=== PATIENT | male | born 1935 | race Caucasian/White ===

== ENCOUNTER 2020-02-21 16:23 | Inpatient (IN) | payer OTHER ==
[~2020-02-21] VITALS: Ht 182.9 cm; Wt 80.4 kg
[2020-02-21 16:23] VITALS: BP 171/72
[2020-02-21 17:21] LABS: ABSOLUTE NEUTROPHILS 4.1 thou/uL (1.4-8.2); BASOPHILS 0.3 % (0.0-2.0); EOSINOPHILS 4.5 % (0.0-3.0); HEMATOCRIT 48.9 % (42.0-52.0); HEMOGLOBIN 16.3 gm/dL (14.0-18.0); LYMPHOCYTES 13.7 % (24.0-44.0); MCH 32.7 pg (26.0-34.0); MCHC 33.4 g/dL (28.0-37.0); MCV 98.1 fL (80.0-100.0); MONOCYTES 10.6 % (1.0-8.0); PLATELET COUNT 232 thou/uL (150-400); POLYS 70.9 % (36.0-66.0); RBC 4.99 mil/uL (4.50-6.00); WBC 5.8 thou/uL (4.0-11.0)
[2020-02-21 17:30] LABS: CALCIUM 9.3 mg/dL (8.5-10.1); CREATININE 1.3 mg/dL (0.7-1.3); POTASSIUM 4.2 mmol/L (3.5-5.1)
[2020-02-21] MEDS ORDERED: TYLENOL325 MG PO (17:32)
[2020-02-21 17:36] LABS: TOTAL BILIRUBIN 0.4 mg/dL (<0.1-1.0)
[2020-02-21] MEDS ORDERED: ALPRAZOLAM XR3 MG PO (17:37)
[2020-02-21] MEDS ORDERED: SERTRALINE HCL100 MG PO (17:38)
[2020-02-21] MEDS ORDERED: DIVALPROEX SOD250 M1 PO (17:38)
[2020-02-21 18:00] LABS: URINE BILIRUBIN NEGATIVE (Negative); URINE BLOOD NEGATIVE (Negative); URINE CLARITY CLEAR; URINE COLOR YELLOW; URINE GLUCOSE-RANDOM* NEGATIVE (Negative); URINE KETONES NEGATIVE (Negative); URINE LEUKOCYTES-REFLEX NEGATIVE (Negative); URINE NITRITE-REFLEX NEGATIVE (Negative); URINE PROTEIN (DIPSTICK) NEGATIVE (Negative); URINE SPECIFIC GRAVITY >= 1.030 (1.005-1.035); URINE UROBILINOGEN 0.2 E.U./dl (0.2-1.0)
[2020-02-21 18:06] VITALS: BP 142/77
[2020-02-21 18:08] LABS: AMP/METHAMP Negative (Negative); BARBITURATES Negative (Negative); BENZODIAZEPINES POSITIVE (Negative); COCAINE Negative (Negative); METHADONE Negative (Negative); OPIATES Negative (Negative); PCP Negative (Negative)
[2020-02-21 19:26] VITALS: BP 163/84
--- NOTE | 2020-02-21 19:28 | NUR ---
84 YEAR OLD MALE ARRIVES TO UNIT AT APPROX. 1800 FROM ER. TO ER FROM [facility] IN [place] WITH REPORTED AGITATION,RECENT FALLS AND HYPERSEXUAL BEHAVIORS TOWARD STAFF AND PEERS. UPON ARRIVAL TO UNIT IS NOTED TO ORIENTED TO NAME ONLY-MILDLY AGITATED WHEN NURSE REMOVED HIS BELT AND SHOES YELLING LOUDLY "HEY GET AWAY YOU THIEF" UPON PHYSICAL EXAM IS NOTED TO HAVE 1 PLUS PEDAL EDEMA TO FEET/ANKLES BILAT-REDDNED LEFT GREAT TOE BUT IS NOT WARM TO TOUCH OR SWOLLEN AND PT DENIES C/O PAIN TO TOE-SMALL DIME SIZE REDDENED AREA TO LEFT ANABAPTIST AND SIMILIAR ABRADED AREA TO LEFT KNEE FROM FALL ON 02/13 PER NH NOTED. DOMITILA REBOLLEDO CONTACTED VIA PHONE AND CONSENTS OBTAINED. PT ORIENTED TO ROOM AND UNIT-SUPPER TRAY OFFERED-GAIT SLIGHTLY UNSTEADY AND PLACED ON HIGH FALLS RISK-MD NOTIFIED FOR ORDERS.BELONGINGS SECURED AND INVENTORIED. PT DENIES SI/SH/HI ON ADMIT. NO NOTED OR REPORTED PSYCHOSIS-MILDLY ANXIOUS-PACING IN HALLWAYS. ALLOWED SKIN CHECK WITH EXCEPTION OF PERINEAL AREA-BEGAN TO GET AGITATED.
[2020-02-21 19:33] VITALS: BP 92/66
[2020-02-21 20:15] VITALS: BP 92/66
--- NOTE | 2020-02-22 06:49 | NUR ---
ASSUMED CARE AT 1915; 2014 PT AAOx1, confused and anxious, showed concern for , pt was informed were he was at and that this RN spoke with memo. Pt denies any pain or SI/HI. 2344 bed alarm went off and discovered pt shuffling to bathroom, pt flused toilet prior to RN viewing. 0645 pt up and dressed and shuffling to day room for coffee but noted pt returned to his room. Zero acute distress noted today.
--- NOTE | 2020-02-22 07:47 | EKG ---
[facility] [place] [address] ELECTROCARDIOGRAM REPORT Name: NIRAV BAEZ Maribel Room #: 52-A ADM IN M.R.#: [id number] Admission: 02/21/20 Attend Phys: Danish Marin DO Discharge: Date of : 39 Report #: [id number] THIS REPORT FOR: cc: FAM - No family physician/PCP FAM - No family physician/PCP Duane Downs MD [facility] ~ THIS REPORT FOR: //name// [facility] ED Test Date: 2020-02-21 Test Time: 17:28:17 Pat Name: NIRAV BAEZ Department: Room: 52 Gender: M Newsagent: melchor : 1935 Requested By: Antoine Allison Order Number: [id number] MD: Duane Downs Measurements Intervals Summit Rate: 68 P: 3 WI: 191 QRS: -12 QRSD: 93 T: 39 QT: 417 QTc: 444 Interpretive Statements Sinus rhythm Normal tracing No previous ECG available for comparison Electronically Signed On 02-22-2020 7:46:05 CDT by Duane Downs [email or web address] <ELECTRONICALLY SIGNED> By: Duane Downs MD, FAC 02/22/20 0746 1728 1728 Duane Downs MD, [facility] /EPI
[2020-02-22 08:36] VITALS: BP 157/75
--- NOTE | 2020-02-22 10:50 | NUR ---
Assumed care 0700. Pleasant, confused, compliant with medications. He took off his yellow shirt and yellow socks, declining to put them on. Wants to get his own shave kit from the storage area. Reading a book today about . No c/o pain. No physical concerns. 2+pitting ankle edema.
[2020-02-22 18:21] LABS: TSH 5.189 uIU/mL (0.358-3.740)
[2020-02-22 18:50] LABS: FOLIC ACID 28.4 ng/mL (8.6-58.9)
[2020-02-22 19:27] VITALS: BP 151/54
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
[2020-02-23 08:54] VITALS: BP 147/72
--- NOTE | 2020-02-23 14:13 | NUR ---
Up ambulating t/o unit with regular gait. No s/o distress. Orientated to person only, confused speech, looking under bed repeatedly. Compliant with meds, follows simple directions. Denies SI/HI, no speech/behavior indicative of SI/HI. Later in afternoon becoming more restless, pulling unit alarms but very redirectable. Breath sounds clear t/o. Reg HR auscultated. +2 nonpitting edema in lower extremities, L>R. Color pink with brisk capillary refill and palpable peripheral pulses. Independent with voiding. Active bowel sounds over soft, rounded abdomen. Skin slightly erathematous between buttocks, antifungal ointment applied. called for update, appropriate questions and concerns.
--- NOTE | 2020-02-24 02:44 | NUR ---
PATIENT ALERT TO NAME. COOPERATIVE WITH CARE AND TAKING MEDICATION. CONFUSED TO WHERE HE IS, HOWEVER, HE HAS REMAINED IN BED SINCE SHIFT CHANGE. BILATERAL ANKLE EDEMA +2 TO +3. DENIES PAIN. SLEEPING THE MAJORITY OF THE NIGHT. WILL MONITOR.
[2020-02-24 08:21] VITALS: BP 144/71
--- NOTE | 2020-02-24 09:31 | NUR ---
Assumed care at 0700. Patient was med compliant. So far no concerns, no goals for the day. He carries around a brown paper sack. Intermittently he watches TV. He does not interact with peers. He is cooperative, relaxed, pleasant.
--- NOTE | 2020-02-24 18:05 | NUR ---
Pt. seen frequently talkingto himself. He wanted his shoe and got upset when laces were removed for safety per unit policy. He shaved himself accompanied by nurse for safety and was appropriate. He declined a shower. He is not wearing yellow shirt or socks.
[2020-02-24 19:51] VITALS: BP 174/93
--- NOTE | 2020-02-24 23:29 | NUR ---
ASSUMED CARE ON 02/24/20 @ 1930, SITTING AT A TABLE AND CHAIR IN THE DAY ROOM. ORIENTED TO PERSON AND TIME, NOT ORIENTED TO PLACE, HAS CONFUSION AND TROUBLE FOCUSING ON ASSESSMENT AND ON TASK AT HAND. AT HS NOTED TO STILL HAVE HIS WALLET AND WATCH WITH HIM. ADDED TO INVENTORY AND SENT TO SECURITY FOR SAFE KEEPING. AGITATION NOTED @ HS WHEN TRYING TO GIVE CARES TO PATIENT. ORDER OBTAINED FOR PRN OLANZAPINE ODT Q 6 HOURS. IN BED AT THIS TIME.
--- NOTE | 2020-02-25 06:36 | NUR ---
SLEPT WELL OVERNIGHT 6.2 HOURS. DRESSED IN DAY CLOTHES AND AMBULATED TO THE DAY ROOM.
[2020-02-25 07:45] VITALS: BP 141/80
--- NOTE | 2020-02-25 09:45 | NUR ---
Assumed care 0700. Patient quiet, cooperative, pleasantly confused. Patient feeds himself, compliant with medications. He agreed to wear yellow shirt then could not remember he agreed to wear it for 5 minutes while he used the bathroom. His gait is still shuffling. He does not initiate conversation with peers or staff. He is [place].
--- NOTE | 2020-02-25 11:24 | NUR ---
HERMELINDA contacted [facility] and received contact info for updates of either the LAYLA Rao or Admin Shi fax # [phone]. HERMELINDA faxed updates to the number provided. HERMELINDA team will continue to follow pt during his stay on this unit.
--- NOTE | 2020-02-25 13:57 | NUR ---
Sw met wiht this pt for reminiscent therapy. 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 Pt was engaging and smiled througout the converstation
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
[2020-02-26 05:40] VITALS: BP 141/80
[2020-02-26 07:46] VITALS: BP 117/66
--- NOTE | 2020-02-26 10:56 | NUR ---
PATIENT CARE ASSUMED AT 1900 - PATIENT UP IN DINING [place] - CALM, AGREEABLE AND REDIRECTABLE. UNSTEADY WHEN AMBULATING - NEEDS MONITORING FOR SAFETY. ATE 100 PERCENT OF BREAKFAST. WANDERS ABOUT CORRIDORS TRYING DOORS - LOST WEDDING BAND AND KNEW IT WAS MISSING - ALERTED STAFF. PATIENT COMPREHENSION LIMITED - MEDICATION COMPLIANT. SAT THROUGH GROUP ACTIVITY BUT PARTICIPATION LIMITED. NO AGGRESSION OR AGITATION EVIDENT.
[2020-02-26 20:04] VITALS: BP 106/51
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
[2020-02-27 08:30] VITALS: BP 138/69
[2020-02-27 20:05] VITALS: BP 141/60
--- NOTE | 2020-02-28 03:40 | NUR ---
ASSUMED CARE ON 02/27/20 @ 1900, IN DAY ROOM WATCHING TV, ATE 100% OF SNACK, COOPERATED WITH ASSESSMENT. HRRR, LUNGS CTA, ABD N X 4Q. A&OX2 TO PERSON AND . CONFUSED AND FORGETFUL. DRESSES NEATLY, HOWEVER REFUSES TO WEAR YELLOW T-SHIRT AND YELLOW SOCKS. GAIT IS UNSTEADY YET DOES NOT USE A WALKER. WEARS A BRIEF, IS GENERALLY CONTINENT. COMPLIANT WITH MEDS. ASLEEP AT THIS WRITING.
[2020-02-28 04:25] VITALS: BP 141/60
--- NOTE | 2020-02-28 08:50 | NUR ---
RT progress note- Patient is not engaging in 1;1 leisure on unit at this time. He will ocassionally accept conversation but is then quick to ask staff to use their badge to let him out of the unit. Very disoriented and discharge focused.
[2020-02-28 09:02] VITALS: BP 120/73
--- NOTE | 2020-02-28 10:58 | NUR ---
HERMELINDA faxed updates to [facility]. HERMELINDA team will continue to follow pt during his stay on this unit.
--- NOTE | 2020-02-28 16:54 | NUR ---
ASSUMED CARE OF PATIENT AT 0715, PATIENT ALERT WITH CONFUSION. PATIENT DENIES PAIN THIS AM. PATIENT UP AD ARLINE, SHUFFLE GAIT NOTED, AMBULATES AROUND THE UNIT. PATIENT TOOK AM MEDS W/O DIFFICULTY. PATIENT APPEARS TO BE CALM, JUST HANGING AT TH EXIT DOOR, REDIRECTED TO DINING AREA, BUT KEEPS GETTING UP AND HANGING AT THE EXIT DOOR. PATIENT WENT DOWN ON THE FLOOR, DR LARA HERE AND ORDERED ZIPRASIDONE 1OMG IM X 1, GIVEN LEFT DELTOID. PATIENT ASSSITED BACK TO HIS ROOM, 1:1 SITTER ORDERED WHILE AWAKE. PATIENT SLEPT UNTIL ABOUT 1500, PATIENT TOOK ZYPREXA SCHEDULED DOSE FOR 1500 W/O DIFFICULTY. PATIENT IN DINING AREA WATCHING TV AND APPEARS TO BE CALM. DR LARA WILL D/C THE 1:1 AT THIS TIME. WILL CONTINUE TO MONITOR.
[2020-02-28 20:36] VITALS: BP 108/59
[2020-02-28 22:30] VITALS: BP 108/59
--- NOTE | 2020-02-29 00:16 | NUR ---
Assumed care of patient this pm shift. Patient sitting in mileu at a table. Patient dressed neat and clean. Patient calm and cooperative. Patient takes medications whole. Patient appears confused and asks why he is here. Patient denies hi/si. Patient ambulates without assistance. Patients assessment shows clear breath sounds, active bowel sounds, and s1 s2 heard with auscultation. Patient has 1:1 sitter. We will continue to monitor.
[2020-02-29 08:00] VITALS: BP 130/74
--- NOTE | 2020-02-29 11:27 | NUR ---
Assess for length of stay. Admit to [facility] for agitation, dementia. Attempt to visit, pt sitting in dining room sleeping at table, sitter is present. Eating 100% most meals. Large wt discrepancies 134-200 lb. Most recent is 177 lb which appears most accurate upon observation of pt. Vitamin D level borderline low 31.8, recommend start supplementation. Otherwise low nutrition risk
--- NOTE | 2020-02-29 14:05 | NUR ---
ORIENTED TO NAME ONLY. FORGETFUL AND CONFUSED. AMBULATES WITH SLOW GAIT USING ROLLER WALKER. 1:1 SITTER DISCONTINUED USING CHAIR ALARM AND CLOSE SUPERVISTION. POOR APPETITIE.
[2020-02-29 19:43] VITALS: BP 109/53
--- NOTE | 2020-03-01 01:29 | NUR ---
PATIENT ALERT TO NAME AND WAS COOPERATIVE WITH TAKING MEDS AT BEGINNING OF SHIFT. LOCATED IN THE DAY ROOM IN A AN CHAIR HE BECAME AGITATED AFTER TRYING TO STAND UP UNASSISTED. AT THIS TIME THE AIDES WERE ATTEMPTING TO KEEP HIM FROM SLIDING TO THE FLOOR AND HE STARTED SWINGING HIS ARMS, KICKING HIS LEGS AND ATTEMPTING TO BITE. ANOTHER PATIENT TRIED TO ASSIST STATING "YOU ARE FREE". AT THIS TIME THE CHARGE NURSE DHARA UP HIS PRN OLANZAPINE IM INJECTION WHICH WAS ADMINISTERED IN HIS LEFT ARM. THIS CALMED HIM AND LATER HE WAS ASSISTED TO HIS ROOM TO BED. WILL MONITOR.
--- NOTE | 2020-03-01 09:30 | NUR ---
Assumed care at 0700. Patient was asleep initially in his bed. Upon awakening he is A and O X1. He denies pain. He fed himself breakfast.
--- NOTE | 2020-03-01 16:36 | NUR ---
Given PRN Olanzapine SL at 1037 due to refusal of routine medication in AM. Pt. was out for Lunch, went to bed napping at least 3 hours in the afternoon. spoke with nurse on phone and suggested nursing staff tell him the medications are "supplements," also suggested putting meds in pudding/ice cream, or applesauce. He likes chocolate. His birthday is Tuesday03-04-2018.
--- NOTE | 2020-03-01 18:16 | NUR ---
Resting in bed after dinner. Denies complaints. Up using walker, shuffle gait. Had loose stool earlier in the day. when asked when he had his last BM he said, "a long time ago." Pleasantly confused.
[2020-03-01 19:59] VITALS: BP 113/80
--- NOTE | 2020-03-02 00:47 | NUR ---
PT CARE ASSUMED AT 1915 WITH PT IN THE HALLWAY .PT KEPT WALKING UP AND DOWNTHE HALLWAY WITH PEERS.PT BEDTIME MEDICATION ADMINISTERED IN APPLESAUCE.PT WAS ASSISTED TO BED BUT REFUSED TO SLEEP AT THAT TIME.PT REDIRECTED AND REMINDED TO USE WALKER.PT CONTINUE TO SIT IN THE HALLWAY AND LATER ASSISTED TO BED.WILL CONTINUE TO MONITOR
--- NOTE | 2020-03-02 10:18 | NUR ---
WAS COOPERATIVE WITH TAKING DEPAKOTE AND ZYPREXA WHOLE TODAY. APPEARS UNKEPT BUT REFUSES OFFERS OF SHAVE OR CLOTHING CHANGE STATING "BROCK GOT TO GET GOING" ORIENTED TO NAME ONLY. GAIT UNSTEADY AT TIMES AND NEEDS FREQUENT REMINDERS TO USE ROLLER WALKER. REMAINS ON FALLS PRECAUTIONS. DENIES SI/SH/HI. EXIT SEEKING STANDING AT EXIT DOOR ASKING PEOPLE WHO PASS IF HE CAN GET OUT. FRUSTRATED AND RESTLESS REPEATING THAT HE HAS TO "GO" ASSISTED TO BR Q 2-3 HOURS.
--- NOTE | 2020-03-02 18:21 | NUR ---
SLIGHTLY CALMER THIS PM-WILL STAND AT EXIT DOOR BUT IS ABLE TO BE DIRECTED TO DINING ROOM TO EAT/SIT WITH COAXING/ENCOURAGEMENT. GAIT IS STEADY WITHOUT ASSISTIVE DEVICES. ABLE TO FEED SELF.
--- NOTE | 2020-03-03 02:22 | NUR ---
ASSUMED PT CARE AROUND 1930. ALERT AND AWAKE. IMPULSIVE AND EXIT SEEKING. DOES NOT FOLLOW DIRECTIONS VERY WELL. BECAME VERY ANGRY AND AGITATED WHEN TRIED TO TAKE PT AWAY FROM UNIT EXIT TO SEEK SAFETY. PRN MED GIVEN PER PT'S SAFETY AND RELIEF OF S/S. RESTING COMFORTABLY IN RECLINER AT THIS TIME. WILL CONT TO MONITOR FOR ANY CHANGES IN CONDITION.
[2020-03-03 08:36] VITALS: BP 148/66
--- NOTE | 2020-03-03 14:03 | NUR ---
SW received a call from patient's inquiring about patient's status. She inquired about his exit seeking behavior. SW provided her with an update.
--- NOTE | 2020-03-03 15:36 | NUR ---
HERMELINDA faxed update to [place].
[2020-03-03 19:49] VITALS: BP 101/64
[2020-03-03 20:05] VITALS: BP 101/64
--- NOTE | 2020-03-04 06:19 | NUR ---
03-03-20 care transfered 2004 pt sitting in day room AAOx1, presented calme. Pt denies any pain and SI/HI; 2134 pt in bed sitting pt became confused and agitated, and at first was refusing to take medication. Pt was reassured and after some 1:1 pt then took medication without any difficulties. Please refer to nursing interventions for more information. Zero acute distress noted.
[2020-03-04 09:00] VITALS: BP 124/71
[2020-03-04 10:44] VITALS: BP 124/71
--- NOTE | 2020-03-04 10:51 | NUR ---
ASSUMED CARE AT 0700 THIS MORNING. PT. UP, DRESSED AND ON THE UNIT FOR MEALS. PT. STABLE. HIS BROWN BAG OF CLOTHING IS IN THE NURSES STATION. HE HAS COME TO THE NURSES STATIONS ASKING FOR THE BROWN BAG OF CLOTHING. HE WAS DENIED AND HE LEFT THE AREA. HE CONTINUES TO STATE HE NEEDS TO GO HOME RIGHT NOW. HE TOOK HIS MORNING MEDICATIONS WITHOUT DIFFICULTY. HE DID NEED ENCOURAGEMENT TO TAKE THEM THOUGH.
--- NOTE | 2020-03-04 12:08 | NUR ---
SW reviewed pt's chart for updates.
[2020-03-04 19:41] VITALS: BP 111/67
--- NOTE | 2020-03-04 19:56 | NUR ---
Assumed care at change of shift. Pt. sitting in day room at table looking at a bible. He is oriented x 1 only. He denies pain. No signs or symptoms of pain, anxiety or distress noted. He was able to feed himself sherbert as evening snack.
[2020-03-04 21:19] VITALS: BP 111/67
--- NOTE | 2020-03-05 06:38 | NUR ---
Pt. slept well through shift. No signs or symptoms of distress noted and no wandering in hallways noted after retiring to bed.
[2020-03-05 07:26] VITALS: BP 141/68
--- NOTE | 2020-03-05 09:27 | NUR ---
IS CONFUSED BUT REDIRECTABLE THIS AM. ENTERING PEERS ROOMS LOOKING FOR EXIT BUT WILL REDIRECT EASILY WITH NURSING. ORIENTED TO NAME ONLY-UNAWARE THAT HE IS IN THE HOSPITAL STATING THAT HE IS "ON A WORKSITE" GAIT IS STEADY BUT DRAGS FEET ON FLOOR. DENIES C/O PAIN/DISCOMFORT. NO SKIN BREAKDOWN NOTED/REPORTED DURING AM ASSESSMENT. APPETITE GOOD AND IS ABLE TO FEED SELF. TOOK ALL AM MEDICATIONS WHOLE WITHOUT RESISTANCE. SO FAR THIS AM HAS NOT BEEN STANDING AT EXIT DOOR.
--- NOTE | 2020-03-05 14:46 | NUR ---
HERMELINDA contacted Maira SANTOS) with [facility] at [phone] and arranged discharge for pt 03/06 @10am. She also faxed Maira updates for pt. HERMELINDA contacted Chey and provided an update. HERMELINDA team will continue to follow pt during his stay on this unit.
[2020-03-05 19:29] VITALS: BP 155/73
--- NOTE | 2020-03-05 22:48 | NUR ---
Assumed care on 03/05/20 @ 1900, ambulating throughout the mileu, entering peers rooms and trying doors seeking an exit. Cooperated with assessment, compliant with medications. Tylenol provided for general pain and restlessness, 5/10 pain scale. follow up noted to be partial pain relief /10. Began handling other peoples belongings in the day room, and agitated when redirected. Olanzapine 5mg s.l. provided @ 2220. Continues to be awake @ 2300 at this writing.
[2020-03-06 07:29] VITALS: BP 143/71
--- NOTE | 2020-03-06 08:19 | NUR ---
Norm is A/Ox1. He is pleasantly confused. He is up ad meir and ambulates on his own. He is confused. He is redirectable. His speech is soft and garbbled at times. He was asking for "that thing" this morning. When I asked him to show and explain to me he stated "I'll go find it myself."
[2020-03-06] MEDS ORDERED: DEPAKOTE SPRIN125 MG PO (09:23)
[2020-03-06] MEDS ORDERED: ZYPREXA 5 MG TAB5 M1 PO (09:24)
[2020-03-06] MEDS ORDERED: OLANZAPINE ODT5 MG SUBLING (09:24)
[2020-03-06] MEDS ORDERED: SENNA-TIME S T1 EACH PO (09:25)
[2020-03-06] MEDS ORDERED: OLANZAPINE10 M2 IM (09:25)
--- NOTE | 2020-03-06 10:26 | NUR ---
ATTEMPTED TO CALL DPOA REGARDING DISCHARGE. PHONE NUMBER AT HAND IS NOT WORKING.
--- NOTE | 2020-03-06 10:56 | NUR ---
HERMELINDA D/C note SW faxed discharge docs to [place]. No other needs for HERMELINDA team to address at this time.
--- NOTE | 2020-03-06 11:17 | NUR ---
0840 ASSUMED CARE OF PATIENT, PATIENT SITTING IN DAYROOM AT THAT TIME. 0900 PATIENT DRESSED AND READY TO GO HOME. 1035 PATIENT DC'D VIA WC WITH STAFF TO VEHICLE.
--- NOTE | 2020-03-07 20:41 | D ---
[facility] [place] [address] DISCHARGE SUMMARY Name: NIRAV BAEZ Room #: 521A-A [facility] IN M.R.#: [id number] Admission: 02/21/20 Attend Phys: Danish Marin DO Discharge: 03/06/20 Date of : 39 Report #: [id number] THIS REPORT FOR: cc: ONESIMO - Debi family physician/PCP ONESIMO - No family physician/PCP Danish Marin DO ~ THIS REPORT FOR: //name// CC: Danish ECHOLS physician/PCP DATE OF SERVICE: 03/06/2020 INPATIENT PSYCHIATRIC DISCHARGE SUMMARY ATTENDING PHYSICIAN: Danish Marin DO. 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 MEDICAL COMORBIDITIES: Include mildly elevated TSH, borderline hypotensive, encourage p.o. fluids. DISCHARGE DIET: Regular. The patient is discharging to the [place], [place] for memory care. ACTIVITY LEVEL: As tolerated. The patient does require 24/ care and supervision. DISCHARGE MEDICATIONS: Depakote Sprinkles 500 mg p.o. at 0900 and 2100; olanzapine 5 mg sublingual q. 6 p.r.n. for agitation, similarly 5 mg IM q. 6 p.r.n. for severe agitation, scheduled olanzapine 12.5 mg p.o. at 0900 and 2100; sennoside-docusate 2 tabs p.o. b.i.d. for bowel motility; p.r.n. 325 mg of acetaminophen for pain. This admission, sertraline and alprazolam were discontinued. LABORATORY DATA: This admission, CBC was within normal limits grossly. Chemistries: Sodium 138, potassium 4.2, chloride 98, bicarbonate 31, anion gap 9, BUN 22, creatinine 1.3, estimated GFR 53, glucose 117, calcium 9.3, total bilirubin 0.4, AST 32, ALT 45, alkaline phosphatase 98, total protein 8.0, albumin 4.0. Vitamin B12 of 605, vitamin D of 31.8, folate 28.4. TSH slightly elevated at 5.189, but probably acute phase level. Urinalysis negative. [address] [address] DISCHARGE SUMMARY Name: NIRAV BAEZ Maribel Room #: 52-A [facility] IN [facility].#: [id number] Admission: 02/21/20 Attend Phys: Danish Marin DO Discharge: 03/06/20 Date of : 39 Report #: [id number] Toxicology, only positive benzodiazepines. There was an EKG done on this admission. EKG done on 02/20 showed QTC 444, QT 417, VT interval 191, rate 68 and sinus rhythm. REASON FOR ADMISSION: Back on 02/20 is as follows, an 85-year-old male coming in from [employer]. Apparently, he had been aggressive, agitated, pushing and shoving, some alleged inappropriate touching. HOSPITAL COURSE: The patient was admitted to the Geriatric Psychiatry Unit. We did have some troubles getting his exit seeking to simmer down, used a combination of titrating olanzapine up to 12.5 mg p.o. b.i.d. as well as the Depakote. His last level was 77 on 02/24 at 6:00 a.m. level. I think we got there to the point where he can do well in memory care. His , Chey was involved telephonically as no visitors are permitted in the hospital due to the epidemic. At the day of discharge, the patient was not self-injurious, was pleasantly confused. PHYSICAL EXAMINATION: VITAL SIGNS: On the day of discharge are as follows: Temperature 36.3, pulse wnl, respirations 14 , BP 143/71, O2 sat 96%. MUSCULOSKELETAL: Slow gait. Normal station. MENTAL STATUS EXAMINATION: This is a well-developed, elderly, ill-appearing male, apparently stated age. Attention impaired. Concentration impaired. Speech is normal rate. Thought process nonlinear at times. Thought content, either confused or poverty of thought. He does have advanced dementia. No psychomotor agitation, slight psychomotor retardation. Denied SI or HI. Denied auditory, visual, or tactile hallucinations. Insight impaired, judgment impaired. Fund of knowledge well below average. PROGNOSIS: For this patient is guarded to poor given his advanced dementia and already placement in memory care. <ELECTRONICALLY SIGNED> By: Danish Marin DO 03/07/202040 [id number] 18 Danish Marin DO /nt
== END 2020-03-06 10:30 | DRG 57 ==
LOC: ER 16:23 → SBH 18:06
PROVIDERS: Emergency Medicine; Internal Medicine; ADMIT Psychiatry & Neurology Psychiatry
DX: G30.9 Alzheimer's disease, unspecified (principal); F01.51 Vascular dementia, unspecified severity, with behavioral disturbance; Z66 Do not resuscitate; R94.6 Abnormal results of thyroid function studies; N40.0 Benign prostatic hyperplasia without lower urinary tract symptoms; Z79.899 Other long term (current) drug therapy; Z81.8 Family history of other mental and behavioral disorders
CPT/HCPCS: 10880